=== PATIENT | male | born 1995 | race Caucasian/White ===

== ENCOUNTER 2020-12-17 12:54 | Emergency (ER) | payer OTHER ==
[2020-12-17] MEDS ORDERED: SODIUM CHLORIDE 0.9% 1,000 ML IV STA (13:02)
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
[2020-12-17 13:06] LABS: Glucose,Whole Blood 141 mg/dL (75-99)
[2020-12-17 13:07] VITALS: TEMP 98.7
[2020-12-17 13:25] LABS: Basophils # (A) 0.1 k/uL (0-0.2); Basophils % (A) 0 %; Eosinophils # (A) 0.2 k/uL (0-0.7); Eosinophils % (A) 2 %; HCT 45.9 % (39.0-53.0); HGB 16.2 gm/dL (13.0-17.5); Lymphocytes # (A) 1.7 k/uL (1.0-4.8); Lymphocytes % (A) 16 %; MCH 32.7 pg (25.0-35.0); MCHC 35.3 g/dL (31.0-37.0); MCV 92.7 fL (80.0-100.0); Monocytes # (A) 0.6 k/uL (0-1.0); Monocytes % (A) 5 %; Neutrophils # (A) 8.2 k/uL (1.3-7.7); Neutrophils % (A) 76 %; Platelet Count 175 k/uL (150-450); RBC 4.96 m/uL (4.30-5.90); RDW 12.2 % (11.5-15.5); WBC 10.8 k/uL (3.8-10.6)
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
[2020-12-17 13:41] LABS: ALT 69 U/L (4-49); AST 81 U/L (17-59); African American GFR (CKD) >90 (>60 ml/min/1.73 sqM); Albumin 4.5 g/dL (3.5-5.0); Alcohol <10 mg/dL; Alkaline Phosphatase 70 U/L (38-126); Anion Gap 7 mmol/L; Blood Urea Nitrogen 19 mg/dL (9-20); Calcium 9.7 mg/dL (8.4-10.2); Carbon Dioxide 28 mmol/L (22-30); Chloride 105 mmol/L (98-107); Glucose 133 mg/dL (74-99); Non-African American GFR(CKD) >90 (>60 ml/min/1.73 sqM); Potassium 3.7 mmol/L (3.5-5.1); Sodium 140 mmol/L (137-145); Total Bilirubin 0.7 mg/dL (0.2-1.3); Total Protein 7.4 g/dL (6.3-8.2)
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
[2020-12-17 14:23] LABS: Prothrombin Time 10.4 sec (9.0-12.0)
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
[2020-12-17 14:54] VITALS: RESP 18
[2020-12-17 15:02] VITALS: BP 113/56; PULSE 76
== END 2020-12-17 15:10 | disposition home or self-care (01) ==
LOC: EC 12:54
DX: S70.311A Abrasion, right thigh, initial encounter (principal); S70.211A Abrasion, right hip, initial encounter; S80.812A Abrasion, left lower leg, initial encounter; S40.812A Abrasion of left upper arm, initial encounter; S40.811A Abrasion of right upper arm, initial encounter; S00.81XA Abrasion of other part of head, initial encounter; V86.56XA Driver of dirt bike or motor/cross bike injured in nontraffic accident, initial encounter; Y92.410 Unspecified street and highway as the place of occurrence of the external cause
CPT/HCPCS: 36415; 70450; 71045; 71260; 72125; 72129; 72132; 72170; 74177; 80053; 80320; 84484; 85025; 85610; 85730; 86850; 86900; 86901; 93005; 96360; 99285

== ENCOUNTER 2021-08-14 20:21 | Emergency (ER) | payer OTHER ==
[2021-08-14 21:23] LABS: Basophils # (A) 0.1 k/uL (0-0.2); Basophils % (A) 1 %; Eosinophils # (A) 0.1 k/uL (0-0.7); Eosinophils % (A) 2 %; HGB 16.8 gm/dL (13.0-17.5); Lymphocytes # (A) 1.5 k/uL (1.0-4.8); Lymphocytes % (A) 27 %; MCH 33.1 pg (25.0-35.0); MCHC 35.8 g/dL (31.0-37.0); MCV 92.6 fL (80.0-100.0); Mean Platelet Volume 7.5; Monocytes # (A) 0.5 k/uL (0-1.0); Monocytes % (A) 10 %; Neutrophils # (A) 3.2 k/uL (1.3-7.7); Neutrophils % (A) 57 %; Platelet Count 167 k/uL (150-450); RBC 5.07 m/uL (4.30-5.90); RDW 11.8 % (11.5-15.5); WBC 5.5 k/uL (3.8-10.6)
--- NOTE | 2021-08-14 21:24 | ED ---
General Adult HPI - General Chief complaint: Abdominal Pain Stated complaint: Covid+,Abdominal Pain Time Seen by Provider: 08/14/21 20:32 Source: patient, RN notes reviewed Mode of arrival: ambulatory - History of Present Illness Initial comments: 26-year-old male presents to the emergency department for evaluation of intermittent gnawing epigastric pain, onset yesteday, worsening today. States he thought the discomfort was initially "hunger pains" due to poor appetite, but s tates he has been eating fairly consistently today and the discomfort continues to occur periodically. Patient is COVID positive; states symptoms began with cough, fatigue, fever, and poor appetite. Received the monoclonal antibody infusion yesterday. Had been taking Nyquil and Dayquil on an empty stomach; no NSAID use. Complains of strong cough as well. States fever has resolved. NO agg ravating or alleviating factors. Denies chest pain, shortness of breath, difficulty breathing, pain with breathing, nausea, vomiting, diarrhea, constipation, dysuria, or hematuria. - Related Data Previous Rx's Medication Instructions Recorded Ibuprofen [Motrin] 600 mg PO Q6HR PRN #30 tab 12/17/20 Orphenadrine [Norflex] 100 mg PO Q12H #20 tablet.er 12/17/20 Allergies Allergy/AdvReac Type Severity Reaction Status Date / Time Sulfa (Sulfonamide Allergy Unknown Verified 08/14/21 20:26 Antibiotics) Review of Systems ROS Statement: Those systems with pertinent positive or pertinent negative responses have been documented in the HPI. ROS Other: All systems not noted in ROS Statement are negative. Past Medical History Past Medical History: No Reported History History of Any Multi-Drug Resistant Organisms: None Reported Past Surgical History: No Surgical Hx Reported Past Psychological History: No Psychological Hx Reported Smoking Status: Never smoker Past Alcohol Use History: None Reported Past Drug Use History: None Reported General Exam Limitations: no limitations (Well-developed, well-nourished male in no acute distress. Initial temperature 99.5, pulse 91, respirations 20, blood pressure 134/90, pulse ox 98% on room air.) General appearance: alert, in no apparent distress ENT exam: Present: normal exam, normal oropharynx, mucous membranes moist Respiratory exam: Present: normal lung sounds bilaterally. Absent: respiratory distress, wheezes, rales, rhonchi, stridor, chest wall tenderness Cardiovascular Exam: Present: regular rate, normal rhythm, normal heart sounds. Absent: systolic murmur, diastolic murmur, rubs, gallop, clicks GI/Abdominal exam: Present: soft, normal bowel sounds. Absent: distended, tenderness, guarding, rebound, rigid Neurological exam: Present: alert, oriented X3, CN II-XII intact Psychiatric exam: Present: normal affect, normal mood Skin exam: Present: warm, dry, intact, normal color. Absent: rash Course Vital Signs 08/14/21 08/14/21 20:22 22:55 Temperature 99.5 F 98.1 F Pulse Rate 91 76 Respiratory 20 16 Rate Blood Pressure 134/90 126/90 O2 Sat by Pulse 98 96 Oximetry Medical Decision Making - Medical Decision Making 26-year-old male with a recent diagnosis of COVID-19 presents to the emergency Department with complaints of intermittent non-radiating gnawing epigastric pain, onset yesterday. Upon exam, patient is well-appearing and in no acute distress. Vital signs are stable. Patient is tolerating oral intake without d ifficulty. Abdomen is soft with minimal tenderness upon palpation. Patient did receive a monoclonal antibody infusion outpatient yesterday which she tolerated without difficulty. He is not having any shortness of breath or difficulty breathing. Laboratory studies were reviewed and are unremarkable. Chest x-ray shows no acute findings. Patient was given a GI cocktail with minimal change. Results were discussed with patient. He is encouraged to avoid taking medications on an empty stomach. He will be discharged home to follow up with his PCP. Return parameters were discussed in detail. Patient verbalizes understanding and agrees with this plan. This patient's care was discussed with my attending . - Lab Data Result diagrams: 08/14/21 21:11 08/14/21 21:11 Lab Results 08/14/21 08/14/21 08/14/21 Range/Units 21:11 21:11 21:11 WBC 5.5 (3.8-10.6) k/uL RBC 5.07 (4.30-5.90) m/uL Hgb 16.8 (13.0-17.5) gm/dL Hct 47.0 (39.0-53.0) % MCV 92.6 (80.0-100.0) fL MCH 33.1 (25.0-35.0) pg MCHC 35.8 (31.0-37.0) g/dL RDW 11.8 (11.5-15.5) % Plt Count 167 (150-450) k/uL MPV 7.5 Neutrophils % 57 % Lymphocytes % 27 % Monocytes % 10 % Eosinophils % 2 % Basophils % 1 % Neutrophils # 3.2 (1.3-7.7) k/uL Lymphocytes # 1.5 (1.0-4.8) k/uL Monocytes # 0.5 (0-1.0) k/uL Eosinophils # 0.1 (0-0.7) k/uL Basophils # 0.1 (0-0.2) k/uL Sodium 141 (137-145) mmol/L Potassium 3.8 (3.5-5.1) mmol/L Chloride 106 (98-107) mmol/L Carbon Dioxide 24 (22-30) mmol/L Anion Gap 11 mmol/L BUN 16 (9-20) mg/dL Creatinine 0.69 (0.66-1.25) mg/dL Est GFR (CKD-EPI)AfAm >90 (>60 ml/min/1.73 sqM) Est GFR (CKD-EPI)NonAf >90 (>60 ml/min/1.73 sqM) Glucose 102 H (74-99) mg/dL Calcium 9.1 (8.4-10.2) mg/dL Total Bilirubin 0.7 (0.2-1.3) mg/dL AST 34 (17-59) U/L ALT 32 (4-49) U/L Alkaline Phosphatase 56 (38-126) U/L Total Protein 7.9 (6.3-8.2) g/dL Albumin 4.6 (3.5-5.0) g/dL Lipase 105 (23-300) U/L Urine Color Urine Appearance (Clear) Urine pH (5.0-8.0) Ur Specific [place] (1.001-1.035) Urine Protein (Negative) Urine Glucose (UA) (Negative) Urine Ketones (Negative) Urine Blood (Negative) Urine Nitrite (Negative) Urine Bilirubin (Negative) Urine Urobilinogen (<2.0) mg/dL Ur Leukocyte Esterase (Negative) Urine RBC (0-5) /hpf Urine WBC (0-5) /hpf Urine Mucus (None) /hpf 08/14/21 Range/Units 21:55 WBC (3.8-10.6) k/uL RBC (4.30-5.90) m/uL Hgb (13.0-17.5) gm/dL Hct (39.0-53.0) % MCV (80.0-100.0) fL MCH (25.0-35.0) pg MCHC (31.0-37.0) g/dL RDW (11.5-15.5) % Plt Count (150-450) k/uL MPV Neutrophils % % Lymphocytes % % Monocytes % % Eosinophils % % Basophils % % Neutrophils # (1.3-7.7) k/uL Lymphocytes # (1.0-4.8) k/uL Monocytes # (0-1.0) k/uL Eosinophils # (0-0.7) k/uL Basophils # (0-0.2) k/uL Sodium (137-145) mmol/L Potassium (3.5-5.1) mmol/L Chloride (98-107) mmol/L Carbon Dioxide (22-30) mmol/L Anion Gap mmol/L BUN (9-20) mg/dL Creatinine (0.66-1.25) mg/dL Est GFR (CKD-EPI)AfAm (>60 ml/min/1.73 sqM) Est GFR (CKD-EPI)NonAf (>60 ml/min/1.73 sqM) Glucose (74-99) mg/dL Calcium (8.4-10.2) mg/dL Total Bilirubin (0.2-1.3) mg/dL AST (17-59) U/L ALT (4-49) U/L Alkaline Phosphatase (38-126) U/L Total Protein (6.3-8.2) g/dL Albumin (3.5-5.0) g/dL Lipase (23-300) U/L Urine Color Yellow Urine Appearance Clear (Clear) Urine pH 6.0 (5.0-8.0) Ur Specific [place] 1.028 (1.001-1.035) Urine Protein 1+ H (Negative) Urine Glucose (UA) Negative (Negative) Urine Ketones Negative (Negative) Urine Blood Negative (Negative) Urine Nitrite Negative (Negative) Urine Bilirubin Negative (Negative) Urine Urobilinogen <2.0 (<2.0) mg/dL Ur Leukocyte Esterase Negative (Negative) Urine RBC <1 (0-5) /hpf Urine WBC 2 (0-5) /hpf Urine Mucus Moderate H (None) /hpf - Radiology Data Radiology results: report reviewed, image reviewed Two-view chest x-ray was obtained. Report was reviewed in its entirety. Impression per Dr. Phipps is normal chest. No change. Disposition Clinical Impression: Epigastric pain Disposition: HOME SELF-CARE Condition: Stable Instructions (If sedation given, give patient instructions): Epigastric Pain (ED) Additional Instructions: Do not take medications on an empty stomach. Follow-up with your PCP for a recheck via telephone or video visit in the next few days. Return to the Emergency Department with any new, worsening, or concerning symptoms. Is patient prescribed a controlled substance at d/c from ED?: No Referrals: None,Stated [Primary Care Provider] - 1-2 days Time of Disposition: 22:58
[2021-08-14 21:38] LABS: ALT 32 U/L (4-49); AST 34 U/L (17-59); African American GFR (CKD) >90 (>60 ml/min/1.73 sqM); Albumin 4.6 g/dL (3.5-5.0); Alkaline Phosphatase 56 U/L (38-126); Anion Gap 11 mmol/L; Blood Urea Nitrogen 16 mg/dL (9-20); Calcium 9.1 mg/dL (8.4-10.2); Carbon Dioxide 24 mmol/L (22-30); Chloride 106 mmol/L (98-107); Glucose 102 mg/dL (74-99); Non-African American GFR(CKD) >90 (>60 ml/min/1.73 sqM); Potassium 3.8 mmol/L (3.5-5.1); Sodium 141 mmol/L (137-145); Total Bilirubin 0.7 mg/dL (0.2-1.3); Total Protein 7.9 g/dL (6.3-8.2)
--- NOTE | 2021-08-14 22:01 | XR ---
EXAMINATION TYPE: XR chest 2V DATE OF EXAM: 08/14/2021 COMPARISON: 12/17/2020 HISTORY: Cough TECHNIQUE: FINDINGS: Heart and mediastinum are normal. Lungs are clear. Diaphragm is normal. Bony thorax appears normal. IMPRESSION: Normal chest. No change.
[2021-08-14 22:24] LABS: Appearance,Urine Clear (Clear); Bilirubin,Urine Negative (Negative); Blood,Urine Negative (Negative); Color,Urine Yellow; Glucose,Urine (UA) Negative (Negative); Ketones,Urine Negative (Negative); Leukocyte Esterase,Urine Negative (Negative); Mucus,Urine Moderate /hpf; Nitrite,Urine Negative (Negative); Protein,Urine 1+ (Negative); RBC,Urine <1 /hpf (0-5); Specific Gravity,Urine 1.028 (1.001-1.035); Urobilinogen,Urine <2.0 mg/dL (<2.0); WBC,Urine 2 /hpf (0-5)
[2021-08-14] MEDS ORDERED: MAG HYDROX/AL HYDROX/SIMETH 30 ML, HYOSCYAMINE ELIXIR 10 ML, LIDOCAINE VISCOUS 2% 10 ML PO STA ×3 (22:31)
[2021-08-14 23:01] VITALS: BP 126/90; PULSE 76; RESP 16; TEMP 98.1
== END 2021-08-14 23:02 | disposition home or self-care (01) ==
LOC: EC 20:21
DX: R10.13 Epigastric pain (principal); U07.1 COVID-19; Z88.2 Allergy status to sulfonamides
CPT/HCPCS: 36415; 71046; 80053; 81001; 83690; 85025; 99284